=== PATIENT | male | born 1955 | race Caucasian/White ===

== ENCOUNTER → 2017-01-30 | Outpatient (CLI) | payer OTHER ==
[~2017-01-30] MED LIST: ADVIN50/60 INH; ASPI81TA28 PO; BACL1TAB PO; BSP/10 PO; BUPR150T7 PO; CAFF200T13 PO; CALC600T PO; CHOL2000 PO; DICL1TAB5 PO; FLNIN/ NAE; IPRA1AER2 INH; LEVO-14 PO; MAGN250T9 PO; MULT-506 PO; OMEG120013 PO; OMEP20CA9 PO; POTATAB PO; PRVC/20 PO; QUET1TAB30 PO; QUET1TAB32 PO; VITA400C15 PO
--- NOTE | 2017-01-30 16:12 | DIAGNOSTIC IMAGING REPORT ---
MRI OF THE CERVICAL SPINE WITHOUT CONTRAST CLINICAL HISTORY: Right hand weakness. Neck pain. Paresthesias. COMPARISON: MRI of the cervical spine September 25, 2014 and cervical spine radiograph March 24, 2016. TECHNIQUE: Utilizing a 1.5 Krysta magnet and dedicated coil, multiplanar, multiecho imaging of the cervical spine was performed without IV contrast. FINDINGS: There are postsurgical findings consistent with a C6 corpectomy and C5-C7 anterior fusion. Cervical cord signal and caliber are normal. There is no intracanalicular mass or fluid collection. There is no suspicious marrow replacement. Paravertebral soft tissues are unremarkable. A hemangioma within the C3 vertebral body is noted. C2-C3: The central canal and neural foramen are patent. C3-C4: The central canal and neural foramen are patent. C4-C5: There is disc bulge with a small central disc protrusion. There is minimal narrowing of the central canal. There is mild left and moderate right neural foraminal stenosis. This is predominantly due to facet arthrosis. C5-C6: Osteophyte formation results in mild narrowing of the central canal. There is moderate bilateral neural foraminal stenosis. C6-C7: Central canal is patent. There is severe narrowing of the right neural foramen due to uncovertebral hypertrophy and facet arthrosis. There is moderate narrowing of the left neural foramen. C7-T1: There is minimal disc bulge with a tiny central disc protrusion. The central canal and neural foramen are patent. IMPRESSION: 1. Status post C6 corpectomy and C5-C7 anterior fusion. 2. Mild central canal stenosis at C5-C6 due to osteophyte formation. Normal cervical cord signal and caliber. 3. Severe narrowing of the right C6-C7 neural foramen. Otherwise, moderate multilevel neural foraminal stenosis, as detailed above. Electronically signed by: Jonatan Cage M.D. 01/30/2017 4:11 PM Dictated Date/Time: 01/30/2017 4:01 PM
== END | disposition home or self-care (01) ==
LOC: C.MRIBC 15:11
PROVIDERS: ATTEND Physician Assistant
DX: M54.2 Cervicalgia (principal); R20.2 Paresthesia of skin; R29.898 Other symptoms and signs involving the musculoskeletal system; M99.51 Intervertebral disc stenosis of neural canal of cervical region; M43.22 Fusion of spine, cervical region

== ENCOUNTER → 2017-09-05 | Outpatient (CLI) | payer OTHER ==
--- NOTE | 2017-09-05 11:27 | DIAGNOSTIC IMAGING REPORT ---
Brain MRI WITHOUT CONTRAST HISTORY: R51 Headache, chronic dailyPt is allergic to contrast- MRI brain TECHNIQUE: Multiplanar multisequence MRI of the brain was performed without the use of contrast. COMPARISON STUDY: None. FINDINGS: There are no areas of restricted diffusion to suggest acute infarction. The midline structures are intact. The paranasal sinuses are clear. The mastoid air cells are clear. The ventricles and sulci are within normal limits for age. There is no mass, hematoma, midline shift. The major vascular flow-voids at the skull base are well maintained. IMPRESSION: No acute intracranial abnormality. Electronically signed by: Cody Wiggins M.D. 09/05/2017 11:26 AM Dictated Date/Time: 09/05/2017 11:20 AM
== END | disposition home or self-care (01) ==
LOC: C.MRI 10:41
PROVIDERS: ATTEND Physician Assistant
DX: R51 Headache (principal)

== ENCOUNTER → 2017-09-13 | Outpatient (CLI) | payer OTHER ==
[2017-09-13 15:35] LABS: BASO % 0.9 %; BASO ABS # 0.05 K/uL (0-0.2); EOS % 7.4 %; EOS ABS # 0.41 K/uL (0-0.5); HEMATOCRIT 39.5 % (42-52); HEMOGLOBIN 13.7 g/dL (14.0-18.0); IG# 0.01 K/uL (0.00-0.02); LYMPH % 37.5 %; LYMPH ABS # 2.08 K/uL (1.2-3.4); MEAN CORPUSCULAR HEMOGLOBIN 32.9 pg (25-34); MEAN CORPUSCULAR HGB CONC 34.7 g/dl (32-36); MEAN PLATELET VOLUME 9.9 fL (7.4-10.4); MONO % 11.7 %; MONO ABS # 0.65 K/uL (0.11-0.59); NEUT % 42.3 %; NEUT ABS # 2.35 K/uL (1.4-6.5); PLATELET COUNT 284 K/uL (130-400); RED CELL DISTRIBUTION WIDTH CV 12.7 % (11.5-14.5); RED CELL DISTRIBUTION WIDTH SD 43.9 fL (36.4-46.3); WHITE BLOOD COUNT 5.55 K/uL (4.8-10.8)
== END | disposition home or self-care (01) ==
LOC: C.LAB1850 14:34
PROVIDERS: ATTEND Physician Assistant
DX: R51 Headache (principal)

== ENCOUNTER 2018-02-28 01:33 | Observation (INO) | payer OTHER ==
[~2018-02-28] VITALS: Ht 185.4 cm; Wt 90.8 kg
--- NOTE | 2018-02-28 01:50 | EMERGENCY ROOM VISIT NOTE ---
History Report prepared by Deven: Serjio Ocasio Under the Supervision of: Dr. Stefani Lacy D.O. First contact with patient: 01:38 Chief Complaint: CHEST PAIN Stated Complaint: CHEST PAINS,SHORTNESS OF BREATH History of Present Illness The patient is a 62 year old male who presents to the Emergency Room with complaints of constant, worsening, sharp chest pain beginning today at 0015. The patient states that he developed chest pain tonight when he went into work. He notes that his pain is located in his left chest and radiates to his left shoulder. He reports that his pain does not radiate to his back, neck, jaw, and left arm. The patient states that his pain worsens with movement. He also complains of SOB, difficulty focusing, lightheadedness, and "dry mouth." He denies any dizziness, nausea, abdominal pain, numbness/tingling, and black/ bloody stool. He notes that he has a history of acid reflux and asthma, but he reports that his current symptoms do not feel similar. The patient states that he has not had similar symptoms before. He notes that he took an antacid prior to arrival with no relief of his symptoms. He reports that he has a history of anxiety but he states that his current symptoms do not feel like an anxiety attack. He denies any previous history of heart problems, recent travel, and change in medication. The patient states that he does not smoke cigarettes and drink alcohol. He notes that he does not have a family history of heart problems , but he reports that he has a family history of cancer. Source of History: patient Onset: 0015 today Quality: sharp Timing: constant, worsening Associated Symptoms: + SOB, No nausea, No abdominal pain, No numbness Note: The patient also complains of left shoulder pain, difficulty focusing, lightheadedness, and "dry mouth.". He denies any jaw pain, left arm pain, dizziness, tingling, and black/bloody stool. Review of Systems See HPI for pertinent positives & negatives. A total of 10 systems reviewed and were otherwise negative. Past Medical & Surgical Medical Problems: (1) Anxiety (2) Asthma (3) Cervical stenosis of spinal canal (4) CVA (cerebral infarction) (5) Diabetes (6) GERD (gastroesophageal reflux disease) (7) Other chest pain Surgical Problems: (1) H/O knee surgery (2) History of back surgery Family History Cancer Diabetes mellitus Hypertension Kidney disease Kidney stones Social History Smoking Status: Former Smoker Alcohol Use: none Marital Status: Housing Status: lives with family Occupation Status: disabled Current/Historical Medications Scheduled Ascorbic Acid (Vitamin C), 1,000 MG PO TID Aspirin (Aspirin Ec), 81 MG PO HS Bupropion Hcl (Wellbutrin Xl), 300 MG PO DAILY Buspirone HCl (Buspirone HCl), 10 MG PO BID Caffeine (Caffeine), 1 CAP PO QDL Calcium Carbonate (Calcium 600), 600 MG PO QPM Cholecalciferol (Vitamin D3), 2,000 INTER.UNIT PO DAILY Cyanocobalamin (Vitamin B-12), 100 MCG PO DAILY Fluticasone Prop/Salmeterol (Advair Diskus 500/50 60 Dose), 1 PUFF INH BID Fluticasone Propionate (Fluticasone Propionate), 2 SPRAYS JEANETTE DAILY Garlic (Garlic), 1,000 MG PO TID Ginkgo Biloba (Ginkgo), 1 TAB PO BID Magnesium (Magnesium), 250 MG PO DAILY Multivitamin (Multivitamin), 1 TAB PO DAILY Nutritional Supplements (Wainwright Oil), 1,200 MG PO TID Omeprazole (Prilosec), 20 MG PO BID Potassium Citrate (Alkalinizer (Urocit-K 5), 1 TAB PO DAILY Pravastatin Sod (Pravastatin Sodium), 20 MG PO HS Quetiapine Fumarate (Seroquel), 50 MG PO TID Quetiapine Fumarate (Seroquel), 25 MG PO TID Thiamine Hcl (Vitamin B-1), 100 MG PO DAILY Turmeric (Curcuma Longa) (Turmeric), 1 CAP PO TID Vitamin E (E-400), 400 UNIT PO DAILY Scheduled PRN Ipratropium-Albuterol (Combivent Respimat), 1 PUFF INH QID PRN for Asthma Symptoms Allergies Coded Allergies: Iodinated Diagnostic Agents (Verified Allergy, Severe, RESPIRATORY ARREST , 02/28/18) Iodine (Verified Allergy, Severe, IV-RESP ARREST, 02/28/18) pt. states if given IV has a respiratory arrest Cortisone (Verified Allergy, Unknown, CONTACT SITE SWELLING,RASH, 02/28/18) pt. states he has swelling or gets a rash Valproic Acid (Verified Allergy, Unknown, HALLUCINATIONS , 02/28/18) Fluoxetine (Verified Adverse Reaction, Mild, AGITATION, 02/28/18) pt states he becomes agitated behaviorally Paroxetine (Verified Adverse Reaction, Mild, AGITATION, 02/28/18) pt. states it causes behavoiral agitation Sertraline (Verified Adverse Reaction, Mild, AGITATION, 02/28/18) pt state it causes behavioral agitation Gabapentin (Verified Adverse Reaction, Unknown, suicidal, 02/28/18) Uncoded Allergies: MAYONNAISE (Adverse Reaction, Mild, Nausea, 09/30/15) Reported by PT Physical Exam Vital Signs Date Time Temp Pulse Resp B/P (MAP) Pulse Ox O2 Delivery O2 Flow Rate FiO2 02/28/18 06:24 72 18 124/72 97 Room Air 02/28/18 06:07 71 14 124/72 96 Room Air 02/28/18 05:11 67 02/28/18 05:06 72 16 116/72 97 Room Air 02/28/18 04:30 77 18 121/87 95 Room Air 02/28/18 02:44 91 13 132/63 90 Room Air 02/28/18 01:51 93 02/28/18 01:39 36.5 94 18 164/87 97 Room Air 02/28/18 01:39 96 Room Air Physical Exam GENERAL: alert, uncomfortable appearing, well nourished, in mild distress, non- toxic EYE EXAM: normal conjunctiva, PERRL and EOM's grossly intact OROPHARYNX: no exudate, no erythema, lips, buccal mucosa, and tongue normal and mucous membranes are moist NECK: supple, no nuchal rigidity, no adenopathy, non-tender LUNGS: Clear to auscultation. Normal chest wall mechanics HEART: no murmurs, S1 normal and S2 normal CHEST: No reproducible chest wall tenderness. ABDOMEN: abdomen soft, non-tender, normo-active bowel sounds, no masses, no rebound or guarding. BACK: Back is symmetrical on inspection and there is no deformity, no midline tenderness, no CVA tenderness. SKIN: no rashes and no bruising UPPER EXTREMITIES: upper extremities are grossly normal. LOWER EXTREMITIES: Trace bilateral lower extremity edema. NEURO EXAM: Normal sensorium, cranial nerves II-XII grossly intact, normal speech, no gross weakness of arms, no gross weakness of legs. Medical Decision & Procedures ER Provider Diagnostic Interpretation: Radiology results have been interpreted and reviewed by me. SINGLE VIEW CHEST X-RAY: Rotated. No cardiomegaly, effusions, focal consolidation, wide mediastinum, and acute pulmonary edema. Cervical spine hardware noted. Laboratory Results 02/28/18 01:44 Red Blood Count 4.16, Mean Corpuscular Volume 95.4, Mean Corpuscular Hemoglobin 32.0, Mean Corpuscular Hemoglobin Concent 33.5, Mean Platelet Volume 9.6, Neutrophils (%) (Auto) 48.8, Lymphocytes (%) (Auto) 31.3, Monocytes (%) (Auto) 12.9, Eosinophils (%) (Auto) 5.7, Basophils (%) (Auto) 1.1, Neutrophils # (Auto ) 3.23, Lymphocytes # (Auto) 2.07, Monocytes # (Auto) 0.85, Eosinophils # (Auto ) 0.38, Basophils # (Auto) 0.07 02/28/18 01:44 Test 02/28/18 01:44 02/28/18 01:53 02/28/18 05:13 White Blood Count 6.61 K/uL (4.8-10.8) Red Blood Count 4.16 M/uL (4.7-6.1) Hemoglobin 13.3 g/dL (14.0-18.0) Hematocrit 39.7 % (42-52) Mean Corpuscular Volume 95.4 fL (80-100) Mean Corpuscular Hemoglobin 32.0 pg (25-34) Mean Corpuscular Hemoglobin Concent 33.5 g/dl (32-36) Platelet Count 300 K/uL (130-400) Mean Platelet Volume 9.6 fL (7.4-10.4) Neutrophils (%) (Auto) 48.8 % Lymphocytes (%) (Auto) 31.3 % Monocytes (%) (Auto) 12.9 % Eosinophils (%) (Auto) 5.7 % Basophils (%) (Auto) 1.1 % Neutrophils # (Auto) 3.23 K/uL (1.4-6.5) Lymphocytes # (Auto) 2.07 K/uL (1.2-3.4) Monocytes # (Auto) 0.85 K/uL (0.11-0.59) Eosinophils # (Auto) 0.38 K/uL (0-0.5) Basophils # (Auto) 0.07 K/uL (0-0.2) RDW Standard Deviation 45.4 fL (36.4-46.3) RDW Coefficient of Variation 13.1 % (11.5-14.5) Immature Granulocyte % (Auto) 0.2 % Immature Granulocyte # (Auto) 0.01 K/uL (0.00-0.02) Prothrombin Time 10.7 SECONDS (9.0-12.0) Prothromb Time International Ratio 1.0 (0.9-1.1) Activated Partial Thromboplast Time 25.2 SECONDS (21.0-31.0) Partial Thromboplastin Ratio 1.0 D-Dimer 330 ug/L FEU (0-500) Anion Gap 6.0 mmol/L (3-11) Est Creatinine Clear Calc Drug Dose 79.2 ml/min Estimated GFR () 82.3 Estimated GFR (Non- 71.0 BUN/Creatinine Ratio 14.7 (10-20) Estimated Average Glucose 123 mg/dl Hemoglobin A1c 5.9 % (4.5-5.6) Calcium Level 8.6 mg/dl (8.5-10.1) Magnesium Level 2.0 mg/dl (1.8-2.4) Total Bilirubin 0.6 mg/dl (0.2-1) Aspartate Amino Transf (AST/SGOT) 24 U/L (15-37) Alanine Aminotransferase (ALT/SGPT) 36 U/L (12-78) Alkaline Phosphatase 79 U/L (45-117) Pro-B-Type Natriuretic Peptide < 5 pg/ml (0-900) Total Protein 7.3 gm/dl (6.4-8.2) Albumin 3.9 gm/dl (3.4-5.0) Globulin 3.4 gm/dl (2.5-4.0) Albumin/Globulin Ratio 1.1 (0.9-2) Lipase 102 U/L (73-393) Thyroid Stimulating Hormone (TSH) 1.920 uIu/ml (0.300-4.500) Bedside Troponin I < 0.030 ng/ml (0-0.045) Troponin I < 0.015 ng/ml (0-0.045) Laboratory results per my review. Medications Administered Medications (Trade) Dose Ordered Sig/Lis Route Start Time Stop Time Status Last Admin Dose Admin Nitroglycerin (Nitroglycerin 2% Oint) 1 inch NOW ONCE EXT 02/28/18 02:00 02/28/18 06:05 DC 02/28/18 01:59 1 INCH Famotidine (Pepcid 20mg Iv Push) 20 mg ONE STAT IV 02/28/18 01:51 02/28/18 01:53 DC 02/28/18 01:59 20 MG Fentanyl Citrate (Fentanyl Inj) 90 mcg NOW STAT IV 02/28/18 02:48 02/28/18 02:49 DC 02/28/18 02:55 90 MCG Sodium Chloride 500 ml @ 999 mls/hr Q31M STAT IV 02/28/18 02:49 02/28/18 03:19 DC 02/28/18 02:55 999 MLS/HR Fentanyl Citrate (Fentanyl Inj) 90 mcg NOW ONCE IV 02/28/18 03:45 02/28/18 03:46 DC 02/28/18 03:51 90 MCG Al Hydroxide/Mg Hydroxide (Maalox Susp) 30 ml STK-MED ONCE .ROUTE 02/28/18 03:46 02/28/18 03:47 DC 02/28/18 03:48 30 ML Lidocaine HCl (Viscous Lidocaine 2% Soln) 20 ml STK-MED ONCE .ROUTE 02/28/18 03:47 02/28/18 03:48 DC 02/28/18 03:49 20 ML Ketorolac Tromethamine (Toradol Inj) 30 mg NOW STAT IV 02/28/18 04:35 02/28/18 04:38 DC 02/28/18 04:45 30 MG Morphine Sulfate (MoRPHine SULFATE INJ) 4 mg NOW STAT IV 02/28/18 05:56 02/28/18 05:57 DC 02/28/18 06:07 4 MG Potassium Chloride (Klor-Con M10) 20 meq NOW STAT PO 02/28/18 06:04 02/28/18 06:10 DC 02/28/18 06:12 20 MEQ ECG Per My Interpretation Indication: chest pain Rate (beats per minute): 89 Rhythm: sinus rhythm Findings: no acute ischemic change, no ectopy, other (Normal axis, normal intervals) Change: Repeat EKG: Sinus rhythm, 83, normal axis, normal intervals, no ectopy, no acute ischemic changes. ED Course 0140: The patient was evaluated in room A3. A complete history and physical exam was performed. 0151: Famotidine 20mg IV 0200: Nitroglycerin 1inch EXT 0247: I reevaluated and updated the patient. He states that he is still having pain, but he notes that his pain is not as bad as it was previously. 0248: Fentanyl Citrate 90mcg IV 0249: Sodium Chloride 500 ml @ 999 mls/hr IV 0336: GI Cocktail 24ml PO 0345: Fentanyl Inj 90mcg IV 0346: Maalox Susp 30ml PO 0347: Lidocaine HCl 20ml PO 0424: I reevaluated and updated the patient. 0435: Toradol Inj 30mg IV 0552: I rechecked the patient. He is still having pain that has not improved with medication. 0556: Morphine Sulfate 4mg IV 0558: Upon reevaluation, the patient is stable. I discussed the findings and the treatment plan with the patient. He expresses agreement and understanding. I spoke with Dr. Stuart of the [facility]. The patient will be evaluated for further management. Medical Decision Differential diagnosis: Etiologies such as cardiac ischemia, aortic dissection, pulmonary embolism, pneumonia, pneumothorax, musculoskeletal, infections, pericarditis, myocarditis , esophageal rupture, gastrointestinal, as well as others were entertained. HEART score 4 Patient with concerning presentation initially and good story concerning for cardiac etiology of his chest pain. Patient given GI medications as a precaution given his history of reflux. Patient did state that symptoms this morning do not feel like his typical reflux do not feel like anxiety which she is also previously experienced. Patient's initial blood work was negative, chest x-ray reassuring. Repeat troponin was unchanged. However, patient had persistence of his pain despite multiple medications which was concerning. Case discussed with hospitalist for additional evaluation and treatment. Patient aware of all results and my concerns. We did discuss differential diagnosis. Patient verbalized understanding and was agreeable with plan. Medication Reconcilliation Current Medication List: was personally reviewed by me Blood Pressure Screening Patient's blood pressure: Normal blood pressure Blood pressure disposition: Did not require urgent referral Consults Time Called: 0555 [facility] Call: 0513 I reviewed the patient's case with Dr. Stuart. He will evaluate the patient for further management. Impression Primary Impression: Left sided chest pain Scribe Attestation The scribe's documentation has been prepared under my direction and personally reviewed by me in its entirety. I confirm that the note above accurately reflects all work, treatment, procedures, and medical decision making performed by me. Departure Information Dispostion Being Evaluated By Hospitalist Referrals Raul Rao M.D. (PCP) Patient Instructions [facility]
[2018-02-28] MEDS ORDERED: FAMOTIDINE 20MG/5ML IV PUSH IV STA (01:51)
[2018-02-28] MEDS ORDERED: NITROGLYCERIN 2% OINTMENT 30GM TUBE EXT ONE (02:00)
[2018-02-28 02:06] LABS: BASO % 1.1 %; BASO ABS # 0.07 K/uL (0-0.2); EOS % 5.7 %; EOS ABS # 0.38 K/uL (0-0.5); HEMATOCRIT 39.7 % (42-52); HEMOGLOBIN 13.3 g/dL (14.0-18.0); IG# 0.01 K/uL (0.00-0.02); LYMPH % 31.3 %; LYMPH ABS # 2.07 K/uL (1.2-3.4); MEAN CELL VOLUME 95.4 fL (80-100); MEAN CORPUSCULAR HGB CONC 33.5 g/dl (32-36); MEAN PLATELET VOLUME 9.6 fL (7.4-10.4); MONO % 12.9 %; MONO ABS # 0.85 K/uL (0.11-0.59); NEUT % 48.8 %; NEUT ABS # 3.23 K/uL (1.4-6.5); PLATELET COUNT 300 K/uL (130-400); RED CELL DISTRIBUTION WIDTH CV 13.1 % (11.5-14.5); RED CELL DISTRIBUTION WIDTH SD 45.4 fL (36.4-46.3); WHITE BLOOD COUNT 6.61 K/uL (4.8-10.8)
[2018-02-28 02:48] LABS: ALBUMIN 3.9 gm/dl (3.4-5.0); ALKALINE PHOSPHATASE 79 U/L (45-117); ALT/SGPT 36 U/L (12-78); AST/SGOT 24 U/L (15-37); BLOOD UREA NITROGEN 16 mg/dl (7-18); CALCIUM 8.6 mg/dl (8.5-10.1); CARBON DIOXIDE 26 mmol/L (21-32); CREATININE 1.12 mg/dl (0.60-1.40); GLUCOSE 157 mg/dl (70-99); LIPASE 102 U/L (73-393); POTASSIUM 3.4 mmol/L (3.5-5.1); SODIUM 140 mmol/L (136-145); TOTAL PROTEIN 7.3 gm/dl (6.4-8.2)
[2018-02-28] MEDS ORDERED: FENTANYL CITRATE INJ 50 MCG/1 ML 2 ML VIAL IV STA (02:48)
[2018-02-28] MEDS ORDERED: SODIUM CHLORIDE 0.9% 500ML 500 ML IV STA (02:49)
[2018-02-28] MEDS ORDERED: VITACAP37 PO (03:34)
[2018-02-28] MEDS ORDERED: NUTR1000 PO (03:36)
[2018-02-28] MEDS ORDERED: POTATAB PO (03:36)
[2018-02-28] MEDS ORDERED: GI COCKTAIL PO STA (03:36)
[2018-02-28] MEDS ORDERED: BUPRTAB51 PO (03:38)
[2018-02-28] MEDS ORDERED: GARL10007 PO (03:39)
[2018-02-28] MEDS ORDERED: TURM1CAP4 PO (03:40)
[2018-02-28] MEDS ORDERED: GINK60TA2 PO (03:40)
[2018-02-28] MEDS ORDERED: THIA100T10 PO (03:41)
[2018-02-28] MEDS ORDERED: ASCO10003 PO (03:41)
[2018-02-28] MEDS ORDERED: CYAN100T PO (03:41)
[2018-02-28] MEDS ORDERED: FENTANYL CITRATE INJ 50 MCG/1 ML 2 ML VIAL IV ONE (03:45)
[2018-02-28] MEDS ORDERED: ALUMINUM/MAGNESIUM SUSP 30 ML UDC ONE (03:46)
[2018-02-28] MEDS ORDERED: LIDOCAINE HCL 2% VISC SOLN 20 ML UDC ONE (03:47)
[2018-02-28] MEDS ORDERED: KETOROLAC TROMETHAMINE 30 MG/ML VIAL IV STA (04:35)
[2018-02-28] MEDS ORDERED: MoRPHine SULFATE 4 MG/ML 1 ML CARP\\VIAL IV STA (05:56)
[2018-02-28] MEDS ORDERED: POTASSIUM CHLORIDE 10 MEQ TABCR PO STA (06:04)
[2018-02-28 06:25] LABS: PTT PATIENT 25.2 SECONDS (21.0-31.0)
[2018-02-28] MEDS ORDERED: IV FLUIDS COMPLETED PRN (06:30)
[2018-02-28 06:40] LABS: HEMOGLOBIN A1C 5.9 % (4.5-5.6)
[2018-02-28] MEDS ORDERED: NITROGLYCERIN 0.4 MG SL PER TAB CHARGE SL PRN (06:45)
[2018-02-28] MEDS ORDERED: TRAMADOL HCL 50 MG TAB PO PRN (06:45)
[2018-02-28] MEDS ORDERED: ACETAMINOPHEN 325 MG TAB PO PRN (06:45)
[2018-02-28] MEDS ORDERED: PROCHLORPERAZINE INJ 5 MG in SYRINGE 4 ML IV PRN (06:45)
[2018-02-28] MEDS ORDERED: MoRPHine SULFATE 2 MG/ML CARP IV PRN (06:45)
[2018-02-28] MEDS ORDERED: LACTATED RINGER'S 1000ML 1,000 ML IV SCH (06:45)
[2018-02-28] MEDS ORDERED: LORAZEPAM 2 MG/ML 1 ML VIAL IV PRN (06:45)
[2018-02-28 07:14] VITALS: BP 149/83; PULSE 68; TEMP 37; O2SAT 95; Ht 185.4 cm; Wt 90.8 kg
--- NOTE | 2018-02-28 07:31 | DIAGNOSTIC IMAGING REPORT ---
SINGLE VIEW CHEST CLINICAL HISTORY: Atypical chest pain. FINDINGS: An AP, portable, upright chest radiograph is compared to study dated 09/14/2015. Correlation is made with chest CT dated 07/28/2014. The examination is degraded by portable technique and patient rotation. The cardiomediastinal silhouette is unremarkable. There are low lung volumes with bibasilar atelectasis. No airspace consolidation or large pleural effusion is identified. No pneumothorax is seen. The skeletal structures are osteopenic. The bony thorax is grossly intact. Fusion hardware is noted in the lower cervical spine. IMPRESSION: Low lung volumes with no acute cardiopulmonary abnormality. Electronically signed by: Ric Randle M.D. 02/28/2018 7:29 AM Dictated Date/Time: 02/28/2018 7:28 AM
[2018-02-28] MEDS ORDERED: ASPIRIN 81 MG ECTAB PO ONE (07:32)
[2018-02-28] MEDS: QUETIAPINE FUMARATE 25 MG TAB PO SCH ×2 (08:03→14:02)
--- NOTE | 2018-02-28 08:23 | HISTORY & PHYSICAL EXAMINATION ---
DATE OF ADMISSION: 02/28/2018 PRIMARY CARE PHYSICIAN: Dr. Rao. CHIEF COMPLAINT: Chest pain. HISTORY OF PRESENT ILLNESS: History obtained from patient and records. Medical history is significant for hyperlipidemia, chronic neck pain, chronic anemia (baseline hemoglobin 13), asthma, mood/anxiety disorder, sleep apnea, past alcohol abuse, ongoing tobacco abuse. chronic headache as per records. Recent confinement under Orthopedics service last September 2015 for neck surgery. 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 No trauma. No unusual cough symptoms. Different from reflux. No previous episodes. No recent tick bites although insect bite noted on the left ankle about a week ago. Some relief with Nitro paste given in the ER. MEDICAL HISTORY: As above. OPERATIONS: He has had neck surgery, carpal tunnel surgery. Finger tendon surgery, back surgery, toenail removal. HOME MEDICATIONS: Include magnesium, multivitamins, Prilosec, Fioricet, pravastatin, Seroquel, turmeric, thiamine, vitamin E, vitamin C, aspirin, Wellbutrin, buspirone, calcium. ALLERGIES: CORTISONE, IODINE, VALPROIC ACID, , SERTRALINE, PAROXETINE, GABAPENTIN, DYE. FAMILY HISTORY: Colon cancer. PERSONAL AND SOCIAL HISTORY: occasional cigars, past alcohol abuse. 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 REVIEW OF SYSTEMS: As per HPI, all 10 systems reviewed. All other ROS negative. PHYSICAL EXAMINATION: VITAL SIGNS: Blood pressure was noted to be 160/80 later 110/70, pulse rate 80 , RR 20, temperature 37, sats 97 on room air. GENERAL: Noted to be anxious, no respiratory distress. SKIN: Pallor, warm. HEENT: Alopecia. Bespectacled. Pale palpebral conjunctivae. No ptosis. Dry mucosa. NECK: Chronic neck ROM limitation, nontender. CHEST: Decreased effort. No wheeze. Tenderness on the left chest wall. HEART: Regular rate and rhythm, no murmur. ABDOMEN: Soft, nontender. EXTREMITIES: papule L medial ankle, no edema, nontender. No other deformities. NEUROLOGIC: Coherent. No gross focality. LABORATORY DATA: Hemoglobin was noted to be 13.3, hematocrit 39.7, white cell count 9, platelets 200. Sodium 140, K 3.3., CO2 26, glucose 157. Troponin 0.03. Chest x-ray as per my interpretation atelectasis. EKG as per my interpretation NSR, some T-wave flattening in the lateral leads. ASSESSMENT: 1. Pleuritic left-sided chest pain likely musculoskeletal with reproducibility ro pericarditis ro acute coronary syndrome with Nitro relief. 2. hyperlipidemia on statin therapy, 3. hypokalemia 4. Mood/anxiety DSO on meds 5. past alcohol abuse 6. Chronic anemia, hemoglobin at baseline 7. ongoing tobacco abuse 8. hyperglycemia, rule out DM PLAN: Observation PCU. Check ESR and Lyme screen Follow up troponin level 2D echo. Cardio consult RE chest pain. Replace potassium. Check hemoglobin A1c. The patient counseled to stop smoking. DVT prophylaxis, Lovenox subQ. Full code. MTDD
[2018-02-28] MEDS ORDERED: PANTOprazole SOD 40 MG TAB PO SCH (09:00)
[2018-02-28] MEDS ORDERED: FLUTICASONE PROPIONATE NA SPR 16 GM BTL NAE SCH (09:00)
[2018-02-28] MEDS ORDERED: FLUTICASONE/SALMETEROL (ADVAIR) 500/50 INH 14 PUFF INH SCH (09:00)
[2018-02-28] MEDS ORDERED: BuPROPion XL 300 MG TABCR PO SCH (09:00)
[2018-02-28] MEDS ORDERED: CYANOCOBALAMIN 100 MCG TAB (VIT B-12) PO SCH (09:00)
[2018-02-28] MEDS ORDERED: MULTIVITAMIN TAB PO SCH (09:00)
[2018-02-28] MEDS ORDERED: ENOXAPARIN 40 MG/0.4 ML SYR SC SCH (09:00)
[2018-02-28] MEDS ORDERED: THIAMINE HCL 100 MG TAB PO SCH (09:00)
[2018-02-28 09:57] LABS: CHOLESTEROL 163 mg/dl (0-200); LDL CHOLESTEROL CALCULATED 108 mg/dl
--- NOTE | 2018-02-28 10:48 | Cardiology Consultation ---
Cardiology Consultation Date of Consultation: Feb 28, 2018 Requesting Physician: Dr. Stuart Attending Feed Project Engineer: Dr. Pizarro (Marguerite Negrete PA-C) History of Present Illness Patient is a 62 year old male with history of dyslipidemia, PTSD, anxiety/ depression, prior alcohol and tobacco abuse, history of asthma/possible COPD, and chronic back and neck pain. Patient denies prior history of cardiovascular disease including CAD, ME, arrhythmia or history of murmur. He denies prior cardiac testing or invasive procedures. 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 He felt dizzy/lightheaded with the symptoms and reported loss of "coordination". No falls. no syncope. He also reported increased SOB with his symptoms. Upon arrival in ER. EKG demonstrated NSR without significant ischemic changes. Cardiac enzymes negative. He was treated with nitro without significant relief. He reports symptoms are worsened with deep breaths. No fever or chills. he reports insect bite on left ankle last week. mild erythema. No known tick bites. lyme pending. ESR normal. At time of consult patient continues to report 6 out of 10 left-sided chest pain described as a constant ache worse with deep breaths and movement of his arms. No shortness of breath. No weakness. Dizziness improved. No headaches or vision changes. No cough. No fever chills. He reports his symptoms have not significantly improved since admission. Cardiac enzymes remain unremarkable 4. EKG is unchanged this morning. (Marguerite Negrete PA-C) Past Medical/Surgical History Problem List: Medical Problems: (1) Anxiety (2) Asthma (3) Cervical stenosis of spinal canal (4) CVA (cerebral infarction) (5) Diabetes (6) GERD (gastroesophageal reflux disease) (7) Other chest pain Surgical Problems: (1) H/O knee surgery (2) History of back surgery (Marguerite Negrete PA-C) Family History Cancer Diabetes mellitus Hypertension Kidney disease Kidney stones (Marguerite Negrete PA-C) Cancer Diabetes mellitus Hypertension Kidney disease Kidney stones (Bar Pizarro M.D.) Social History Smoking Status: Current Some Day Smoker Marital Status: Occupation: disabled (Marguerite Negrete PA-C) Review Of Systems See above for pertinent positives & negatives. A total of 10 systems reviewed and were otherwise negative. (Marguerite Negrete PA-C) Allergies Coded Allergies: Iodinated Diagnostic Agents (Verified Allergy, Severe, RESPIRATORY ARREST , 02/28/18) Iodine (Verified Allergy, Severe, IV-RESP ARREST, 02/28/18) pt. states if given IV has a respiratory arrest Cortisone (Verified Allergy, Unknown, CONTACT SITE SWELLING,RASH, 02/28/18) pt. states he has swelling or gets a rash Valproic Acid (Verified Allergy, Unknown, HALLUCINATIONS , 02/28/18) Fluoxetine (Verified Adverse Reaction, Mild, AGITATION, 02/28/18) pt states he becomes agitated behaviorally Paroxetine (Verified Adverse Reaction, Mild, AGITATION, 02/28/18) pt. states it causes behavoiral agitation Sertraline (Verified Adverse Reaction, Mild, AGITATION, 02/28/18) pt state it causes behavioral agitation Gabapentin (Verified Adverse Reaction, Unknown, suicidal, 02/28/18) Uncoded Allergies: MAYONNAISE (Adverse Reaction, Mild, Nausea, 09/30/15) Reported by PT Medications Reported Home Medications Medications Dose Route/Sig Max Daily Dose Days Date Category Vitamin B-12 (Cyanocobalamin) 100 Mcg Tab 100 Mcg PO DAILY 02/28/18 Reported Vitamin B-1 (Thiamine HCl) 100 Mg Tab 100 Mg PO DAILY 02/28/18 Reported Vitamin C (Ascorbic Acid) 1,000 Mg Tab 1,000 Mg PO TID 02/28/18 Reported Turmeric (Turmeric (Curcuma Longa)) 500 Mg Cap 1 Cap PO TID 02/28/18 Reported Ginkgo (Ginkgo Biloba) 60 Mg Tab 1 Tab PO BID 02/28/18 Reported Garlic 1,000 Mg Cap 1,000 Mg PO TID 02/28/18 Reported Wellbutrin Xl (Bupropion Hcl) 300 Mg Tab 300 Mg PO DAILY 02/28/18 Reported [place] Oil (Nutritional Supplements) 1 Cap Cap 1,200 Mg PO TID 02/28/18 Reported Urocit-K 5 (Potassium Citrate (Alkalinizer) 540 Mg Tab 1 Tab PO DAILY 02/28/18 Reported E-400 (Vitamin E) 400 Unit Cap 400 Unit PO DAILY 02/28/18 Reported Seroquel (Quetiapine Fumarate) 25 Mg Tab 25 Mg PO TID 03/24/16 Reported Fluticasone Propionate 120 Sprays/6000 Mcg Inha 2 Sprays JEANETTE DAILY 03/24/16 Reported Magnesium 250 Mg Tab 250 Mg PO DAILY 03/24/16 Reported Buspirone HCl 10 Mg Tab 10 Mg PO BID 03/24/16 Reported Seroquel (Quetiapine Fumarate) 50 Mg Tab 50 Mg PO TID 03/24/16 Reported Caffeine 200 Mg Tab 1 Cap PO QDL 09/14/15 Reported Multivitamin (Multivitamins) Tab 1 Tab PO DAILY 09/14/15 Reported Advair Diskus 500/50 60 Dose (Fluticasone Prop/Salmeterol) 1 Ea Aerp 1 Puff INH BID 09/14/15 Reported Aspirin Ec (Aspirin) 81 Mg Tab 81 Mg PO HS 07/28/14 Reported Combivent Respimat (Ipratropium-Albuterol) 1 Aer Aer 1 Puff INH QID PRN 07/28/14 Reported Pravastatin Sodium (Pravastatin Sod) 20 Mg Tab 20 Mg PO HS 07/28/14 Reported Prilosec (Omeprazole) 20 Mg Cap 20 Mg PO BID 07/28/14 Reported Calcium 600 (Calcium Carbonate) 600 Mg Tab 600 Mg PO QPM 02/16/14 Reported Vitamin D3 (Cholecalciferol) 2,000 Unit Cap 2,000 Inter.unit PO DAILY 02/16/14 Reported (Marguerite Negrete, CINTHIA) Physical Exam Vital Signs (Last 8hrs): Last 8 Hrs Date Time Temp Pulse Resp B/P (MAP) Pulse Ox O2 Delivery O2 Flow Rate FiO2 02/28/18 07:14 37.0 68 18 149/83 95 Room Air 02/28/18 06:52 70 20 115/76 96 02/28/18 06:24 72 18 124/72 97 Room Air 02/28/18 06:07 71 14 124/72 96 Room Air 02/28/18 05:11 67 02/28/18 05:06 72 16 116/72 97 Room Air 02/28/18 04:30 77 18 121/87 95 Room Air 02/28/18 02:44 91 13 132/63 90 Room Air 02/28/18 01:51 93 02/28/18 01:39 36.5 94 18 164/87 97 Room Air 02/28/18 01:39 96 Room Air General Appearance: Alert and Oriented x3. NAD. Head: Normocephalic Atraumatic. Eyes: PERRLA, EOMI, conjunctiva and sclera clear Neck: Supple. No carotid bruits noted. No JVD. No HJD. Respiratory: Breath sounds clear to auscultation bilaterally. No w/r/r. Cardiovascular: Reg rate and rhythm. S1 and S2 noted. No murmurs, rubs, gallops. PMI non displace. Abdomen: Normal bowel sounds, soft nontender. no abdominal bruits. Extremities: No edema, no clubbing or cyanosis. distal pulses 2/4 bilaterally. Neuro: No focal deficits. Psychiatric: Normal affect. (Marguerite Negrete, CINTHIA) Data Last 24 Hours Test 02/28/18 01:44 02/28/18 01:53 02/28/18 05:13 02/28/18 09:10 White Blood Count 6.61 K/uL Red Blood Count 4.16 M/uL Hemoglobin 13.3 g/dL Hematocrit 39.7 % Mean Corpuscular Volume 95.4 fL Mean Corpuscular Hemoglobin 32.0 pg Mean Corpuscular Hemoglobin Concent 33.5 g/dl Platelet Count 300 K/uL Mean Platelet Volume 9.6 fL Neutrophils (%) (Auto) 48.8 % Lymphocytes (%) (Auto) 31.3 % Monocytes (%) (Auto) 12.9 % Eosinophils (%) (Auto) 5.7 % Basophils (%) (Auto) 1.1 % Neutrophils # (Auto) 3.23 K/uL Lymphocytes # (Auto) 2.07 K/uL Monocytes # (Auto) 0.85 K/uL Eosinophils # (Auto) 0.38 K/uL Basophils # (Auto) 0.07 K/uL RDW Standard Deviation 45.4 fL RDW Coefficient of Variation 13.1 % Immature Granulocyte % (Auto) 0.2 % Immature Granulocyte # (Auto) 0.01 K/uL Prothrombin Time 10.7 SECONDS Prothromb Time International Ratio 1.0 Activated Partial Thromboplast Time 25.2 SECONDS Partial Thromboplastin Ratio 1.0 D-Dimer 330 ug/L FEU Sodium Level 140 mmol/L Potassium Level 3.4 mmol/L Chloride Level 108 mmol/L Carbon Dioxide Level 26 mmol/L Anion Gap 6.0 mmol/L Blood Urea Nitrogen 16 mg/dl Creatinine 1.12 mg/dl Est Creatinine Clear Calc Drug Dose 79.2 ml/min Estimated GFR () 82.3 Estimated GFR (Non- 71.0 BUN/Creatinine Ratio 14.7 Random Glucose 157 mg/dl Estimated Average Glucose 123 mg/dl Hemoglobin A1c 5.9 % Calcium Level 8.6 mg/dl Magnesium Level 2.0 mg/dl Total Bilirubin 0.6 mg/dl Aspartate Amino Transf (AST/SGOT) 24 U/L Alanine Aminotransferase (ALT/SGPT) 36 U/L Alkaline Phosphatase 79 U/L Troponin I < 0.015 ng/ml < 0.015 ng/ml Pro-B-Type Natriuretic Peptide < 5 pg/ml Total Protein 7.3 gm/dl Albumin 3.9 gm/dl Globulin 3.4 gm/dl Albumin/Globulin Ratio 1.1 Lipase 102 U/L Thyroid Stimulating Hormone (TSH) 1.920 uIu/ml Bedside Troponin I < 0.030 ng/ml Imaging: Chest xray on admission: low long volumes, no acute process EKG: on admission - Normal sinus rhythm Nonspecific ST and T wave abnormality, compared with outpatient EKG in 2016, no signfiacint change Repeat EKG this AM: Normal sinus rhythm with sinus arrhythmia Nonspecific T wave abnormality no change from previous Telemetry reviewed: NSR in the 70's, rare PVC. No concerning arrhythmias. (Marguerite Negrete PA-C) Assessment & Plan 1. Atypical chest pain, negative cardiac enzymes x4, non ischemic EKG x2 despite ongoing symptoms. -proceed with dobutamine stress echo to evaluate structural heart disease and r/o ischemia -given chronic back/neck pain, patient is unable to walk on a treadmill. -lyme test pending with recent "insect bite" -pleurisy/pericarditis unlikely - normal ESR. -consider musculoskeletal etiology if stress test is normal given history of cervical disc disease 2. dyslipidemia - continue statin Further recommendation spending review of echo/stress test results. Case to be discussed with Dr. Pizarro (Marguerite eNgrete PA-C) Patient was seen and personally examined. Assessment plan as well outlined by Marguerite Negrete. 62-year-old male with symptoms atypical for angina with negative cardiac enzymes and EKGs normal to date. Patient was referred and underwent dobutamine stress echocardiography under my personal supervision patient achieving greater than 85% age-predicted maximum heart rate with appropriate blood pressure response. There is no evidence of myocardial ischemia by EKG or echocardiographic criteria with normal resting LV systolic function and no wall motion abnormalities. Impression: Noncardiac pain (Bar Pizarro M.D.)
[2018-02-28] MEDS ORDERED: DOBUTamine HCL 12.5 MG/ML 20 ML VIAL ONE (11:25)
[2018-02-28] MEDS ORDERED: ATROPINE SULFATE 0.1 MG/ML 10 ML SYR ONE (11:25)
[2018-02-28] MEDS ORDERED: METOPROLOL TARTRATE 1 MG/ML VIAL ONE ×2 (11:25→12:13)
[2018-02-28 12:30] VITALS: BP 94/56; PULSE 68; TEMP 36.6; O2SAT 95
--- NOTE | 2018-02-28 14:13 | DOBUTAMINE ECHO ---
*NOTICE TO RECEIVING LIBERTARIAN AGENCY This information is strictly Confidential and protected under [place] law. [place] law prohibits you from making any further disclosure of this information unless further disclosure is expressly permitted by the written consent of the person to whom it pertains or is authorized by law. A general authorization for the release of medical or other information is not sufficient for this purpose. Hospital accepts no responsibility if the information is made available to any other person, INCLUDING THE PATIENT. Interpretation Summary * Name: KATIE HALEY Study Date: 02/28/2018 10:29 AM BP: 119/68 mmHg * Patient Location: C.2T\S\S241\S\2 HR: 65 * : 1955 (M/d/yyyy) Gender: Male Height: 73 in * Age: 62 yrs Ethnicity: CA Weight: 200 lb * Ordering Physician: Marguerite Negrete * Referring Physician: Self, Referred * Performed By: Radha Gonzalez RDCS * * Reason For Study: Chest pain * BSA: 2.2 m2 * STRESS STUDY: Normal pharmacologic stress echocardiogram. No echocardiographic or ECG evidence of myocardial ischemia having achieved heart rate adequate for diagnostic purposes. * -- Conclusions -- * Left ventricular systolic function is normal. * Ejection Fraction = 55-60%. * The left ventricular ejection fraction increases normally with stress. The left ventricular end-systolic cavity size reduces post-stress (normal response). The left ventricular wall motion with stress is normal. * There is no significant valvular disease Procedure Details * DOBUTAMINE ECHO, CPT#[id number] * ECHO DOPPLER, CPT #[id number] * ECHO COLOR FLOW, CPT #[id number] Left Ventricle * The left ventricle is normal in size. * There is normal left ventricular wall thickness. * Ejection Fraction = 55-60%. * Left ventricular systolic function is normal. * Resting wall motion: Normal. Stress wall motion: Appropriate increase in Left ventricular systolic function and decrease in cavity size. No stress induced segmental wall motion abnormalities. * The left ventricular wall motion is normal at rest. * The left ventricular ejection fraction increases normally with stress. The left ventricular end-systolic cavity size reduces post-stress (normal response). The left ventricular wall motion with stress is normal. Right Ventricle * The right ventricle is normal in size and function. Atria * The left atrial size is normal. * Right atrial size is normal. * No ASD detected; PFO is not assessed. Mitral Valve * The mitral valve anatomy is normal. * There is no mitral valve stenosis. * Significant mitral regurgitation is absent. Tricuspid Valve * The tricuspid valve anatomy is normal. * There is no tricuspid stenosis. * There is mild tricuspid regurgitation. Aortic Valve * The aortic valve is trileaflet. * Aortic stenosis is absent. * There is no significant aortic regurgitation. Pulmonic Valve * The pulmonary valve is not well seen, but the Doppler examination is normal without significant regurgitation or stenosis. Great Vessels * The aortic root and proximal ascending aorta are normal sized. Pericardium * There is no pericardial effusion. Stress Parameters * Normal baseline electrocardiogram. * Stress ECG: No ST changes. No arrhythmias. * The stress portion of this study was personally supervised by the undersigned interpreting physician. * Rest heart rate was '65' BPM. * Rest blood pressure was '119/68' * Maximum heart rate achieved was 139 bpm. * Maximum heart rate was 86 % of maximum age-predicted heart rate. * Maximum blood pressure was '204/106' * Maximum Dobutamine infusion rate was '50' mcg/kg/min. * A total of 0.75 mg of intravenous Atropine was used to supplement Dobutamine for heart rate response. * Dobutamine infusion was terminated due to achieving target heart rate * A total of 7.5 mg of IV Metoprolol was administered to reverse Dobutamine-induced tachycardia. * The patient did not exhibit any symptoms during drug infusion. MMode 2D Measurements and Calculations IVSd 0.93 cm LVIDd 4.3 cm LVIDs 2.7 cm LVPWd 0.85 cm IVS/LVPW 1.1 FS 38.6 % EDV(Teich) 84.5 ml ESV(Teich) 26.1 ml EF(Teich) 69.1 % EDV(cubed) 81.3 ml ESV(cubed) 18.9 ml EF(cubed) 76.8 % LV mass(C)d 122.6 grams LV mass(C)dI 57.0 grams/m\S\2 SV(Teich) 58.5 ml SI(Teich) 27.2 ml/m\S\2 SV(cubed) 62.4 ml SI(cubed) 29.0 ml/m\S\2 Ao root diam 3.8 cm Ao root area 11.1 cm\S\2 ACS 2.0 cm LA dimension 3.2 cm asc Aorta Diam 3.6 cm LA/Ao 0.85 LVOT diam 1.9 cm LVOT area 2.9 cm\S\2 LVAd ap4 29.8 cm\S\2 LVLd ap4 8.6 cm EDV(MOD-sp4) 84.8 ml EDV(sp4-el) 87.6 ml LVAs ap4 16.9 cm\S\2 LVLs ap4 7.5 cm ESV(MOD-sp4) 33.5 ml ESV(sp4-el) 32.5 ml EF(MOD-sp4) 60.5 % EF(sp4-el) 62.9 % LVAd ap2 29.8 cm\S\2 LVLd ap2 8.2 cm EDV(MOD-sp2) 92.1 ml EDV(sp2-el) 91.9 ml LVAs ap2 17.4 cm\S\2 LVLs ap2 6.6 cm ESV(MOD-sp2) 39.8 ml ESV(sp2-el) 38.8 ml EF(MOD-sp2) 56.8 % EF(sp2-el) 57.9 % LVLd %diff -5.46 % EDV(MOD-bp) 91.0 ml LVLs %diff -12.73 % ESV(MOD-bp) 38.6 ml EF(MOD-bp) 57.6 % SV(MOD-sp4) 51.3 ml SI(MOD-sp4) 23.8 ml/m\S\2 SV(MOD-sp2) 52.3 ml SI(MOD-sp2) 24.3 ml/m\S\2 SV(MOD-bp) 52.4 ml SI(MOD-bp) 24.4 ml/m\S\2 SV(sp4-el) 55.1 ml SI(sp4-el) 25.6 ml/m\S\2 SV(sp2-el) 53.2 ml SI(sp2-el) 24.7 ml/m\S\2 Doppler Measurements and Calculations MV E max rodrigo 96.0 cm/sec MV A max rodrigo 44.6 cm/sec MV E/A 2.2 MV dec time 0.17 sec Ao V2 max 126.0 cm/sec Ao max PG 6.3 mmHg Ao max PG (full) 1.6 mmHg UMAIR(V,A) 2.6 cm\S\2 UMAIR(V,D) 2.6 cm\S\2 LV V1 max PG 4.8 mmHg LV V1 max 109.1 cm/sec PA V2 max 123.5 cm/sec PA max PG 6.1 mmHg PA acc slope 559.4 cm/sec\S\2 PA acc time 0.12 sec PI max rodrigo 90.9 cm/sec PI max PG 3.3 mmHg PI dec slope 102.5 cm/sec\S\2 PI P1/2t 259.9 msec TR max rodrigo 198.7 cm/sec PA pr(Accel) 26.7 mmHg
--- NOTE | 2018-02-28 14:34 | Progress Note ---
Medicine Progress Note Date & Time of Visit: Feb 28, 2018 at 14:34 . Subjective Serial troponins OK. Dobutamine stress test went well. Still having left anterior chest wall pain, worse with movement or applied pressure. . Objective Last 8 Hrs Date Time Temp Pulse Resp B/P (MAP) Pulse Ox O2 Delivery O2 Flow Rate FiO2 02/28/18 12:30 36.6 68 16 94/56 (69) 95 Room Air 02/28/18 12:00 Room Air 02/28/18 07:14 37.0 68 18 149/83 95 Room Air 02/28/18 06:52 70 20 115/76 96 Physical Exam: General- lying in bed; no distress Lungs- clear to auscultation; no respiratory distress Cardiovascular- RRR; no gallop appreciated; no JVD; no pretibial edema Thorax- left anterior chest wall tenderness Abdomen- + bowel sounds, soft, nontender Extremities- no cyanosis; no calf tenderness Neuro- alert, oriented Skin- warm & dry . Laboratory Results: Last 24 Hours Test 02/28/18 01:44 02/28/18 01:53 02/28/18 05:13 02/28/18 09:10 White Blood Count 6.61 K/uL Red Blood Count 4.16 M/uL Hemoglobin 13.3 g/dL Hematocrit 39.7 % Mean Corpuscular Volume 95.4 fL Mean Corpuscular Hemoglobin 32.0 pg Mean Corpuscular Hemoglobin Concent 33.5 g/dl Platelet Count 300 K/uL Mean Platelet Volume 9.6 fL Neutrophils (%) (Auto) 48.8 % Lymphocytes (%) (Auto) 31.3 % Monocytes (%) (Auto) 12.9 % Eosinophils (%) (Auto) 5.7 % Basophils (%) (Auto) 1.1 % Neutrophils # (Auto) 3.23 K/uL Lymphocytes # (Auto) 2.07 K/uL Monocytes # (Auto) 0.85 K/uL Eosinophils # (Auto) 0.38 K/uL Basophils # (Auto) 0.07 K/uL RDW Standard Deviation 45.4 fL RDW Coefficient of Variation 13.1 % Immature Granulocyte % (Auto) 0.2 % Immature Granulocyte # (Auto) 0.01 K/uL Prothrombin Time 10.7 SECONDS Prothromb Time International Ratio 1.0 Activated Partial Thromboplast Time 25.2 SECONDS Partial Thromboplastin Ratio 1.0 D-Dimer 330 ug/L FEU Sodium Level 140 mmol/L Potassium Level 3.4 mmol/L Chloride Level 108 mmol/L Carbon Dioxide Level 26 mmol/L Anion Gap 6.0 mmol/L Blood Urea Nitrogen 16 mg/dl Creatinine 1.12 mg/dl Est Creatinine Clear Calc Drug Dose 79.2 ml/min Estimated GFR () 82.3 Estimated GFR (Non- 71.0 BUN/Creatinine Ratio 14.7 Random Glucose 157 mg/dl Estimated Average Glucose 123 mg/dl Hemoglobin A1c 5.9 % Calcium Level 8.6 mg/dl Magnesium Level 2.0 mg/dl Total Bilirubin 0.6 mg/dl Aspartate Amino Transf (AST/SGOT) 24 U/L Alanine Aminotransferase (ALT/SGPT) 36 U/L Alkaline Phosphatase 79 U/L Troponin I < 0.015 ng/ml < 0.015 ng/ml < 0.015 ng/ml Pro-B-Type Natriuretic Peptide < 5 pg/ml Total Protein 7.3 gm/dl Albumin 3.9 gm/dl Globulin 3.4 gm/dl Albumin/Globulin Ratio 1.1 Lipase 102 U/L Thyroid Stimulating Hormone (TSH) 1.920 uIu/ml Bedside Troponin I < 0.030 ng/ml Erythrocyte Sedimentation Rate 2 mm/hr Triglycerides Level 77 mg/dl Cholesterol Level 163 mg/dl HDL Cholesterol 40 mg/dl LDL Cholesterol, Calculated 108 mg/dl VLDL Cholesterol, Calculated 15 mg/dl Cholesterol/HDL Ratio 4.1 Lyme Disease IgG Antibody NEG Lyme Disease IgM Antibody NEG Hepatitis C Antibody Screen NEG Assessment & Plan CHEST PAIN Serial troponins negative. No acute EKG changes. No wall motion abnormalities on rest echo. No stress-induced ischemia on dobutamine stress echo. D-dimer normal, so pulmonary embolism very unlikely. CP seems to be musculoskeletal in nature. No apparent chest wall abnormalities on chest x-ray. Avoid heavy lifting. Acetaminophen PRN. May need further imaging if pain persists. DYSLIPIDEMIA LDL-c = 108. Continue pravastatin. HYPERGLYCEMIA Random blood sugar 157. Hgb A1C 5.9. Follow. TOBACCO USE Received info on smoking cessation. DEPRESSION Experiencing considerable stress. Continue antidepressants. VTE PROPHYLAXIS SQ enoxaparin. DISPOSITION Discharge to home. Family Medicine follow-up with Dr. Rao. . Consultants: Cardiology . Procedures: cardiac monitoring dobutamine stress echo . Current Inpatient Medications: Current Inpatient Medications Medications (Trade) Dose Ordered Sig/Lis Route Start Time Stop Time Status Last Admin Dose Admin Miscellaneous (Iv Fluids Completed) 1 ea PRN PRN N/A 02/28/18 06:30 02/28/19 06:29 Lactated Ringer's 1,000 ml @ 50 mls/hr Q20H IV 02/28/18 06:45 03/30/18 06:44 02/28/18 08:05 50 MLS/HR Enoxaparin Sodium (Lovenox Inj) 40 mg QAM SC 02/28/18 09:00 03/30/18 08:59 02/28/18 08:06 40 MG Acetaminophen (Tylenol Tab) 650 mg Q4H PRN PO 02/28/18 06:45 03/30/18 06:44 Nitroglycerin (Nitrostat Tab) 0.4 mg UD PRN SL 02/28/18 06:45 03/30/18 06:44 Tramadol HCl (Ultram Tab) 25 mg Q6H PRN PO 02/28/18 06:45 03/30/18 06:44 Prochlorperazine Edisylate 5 mg/ Syringe 5 ml @ 5 mls/min Q6H PRN IV 02/28/18 06:45 03/30/18 06:44 Lorazepam (Ativan Inj) 0.5 mg Q4H PRN IV 02/28/18 06:45 03/30/18 06:44 Morphine Sulfate (MoRPHine SULFATE INJ) 4 mg Q4H PRN IV 02/28/18 06:45 03/14/18 06:44 Bupropion HCl (Wellbutrin-Xl Tab) 300 mg DAILY PO 02/28/18 09:00 03/30/18 08:59 02/28/18 08:03 300 MG Cyanocobalamin (Vitamin B-12 Tab) 100 mcg DAILY PO 02/28/18 09:00 03/30/18 08:59 02/28/18 08:03 100 MCG Salmeterol Xinafoate/ Fluticasone (Advair Diskus 500/50 Inh) 1 puff BID INH 02/28/18 09:00 03/30/18 08:59 02/28/18 08:03 1 PUFF Fluticasone Propionate (Flonase Nasal [place]) 2 sprays DAILY JEANETTE 02/28/18 09:00 03/30/18 08:59 02/28/18 08:02 2 SPRAYS Multivitamins (Multivitamin Tab) 1 tab DAILY PO 02/28/18 09:00 03/30/18 08:59 02/28/18 08:04 1 TAB Pravastatin Sodium (Pravachol Tab) 20 mg HS PO 02/28/18 21:00 03/30/18 20:59 Quetiapine Fumarate (seroQUEL TAB) 50 mg TID PO 02/28/18 09:00 03/30/18 08:59 02/28/18 14:02 50 MG Thiamine HCl (Vitamin B-1 Tab) 100 mg DAILY PO 02/28/18 09:00 03/30/18 08:59 02/28/18 08:03 100 MG Buspirone HCl (Buspar Tab) 10 mg BID PO 02/28/18 09:00 03/30/18 08:59 02/28/18 08:04 10 MG Pantoprazole Sodium (Protonix Tab) 40 mg BID PO 02/28/18 09:00 03/30/18 08:59 02/28/18 08:04 40 MG Aspirin (Ecotrin Tab) 81 mg DAILY PO 03/01/18 09:00 03/30/18 20:59
[2018-02-28] MEDS ORDERED: ACET-1257 PO (14:42)
--- NOTE | 2018-02-28 14:46 | Discharge Instructions ---
Discharge Instructions Date of Service Feb 28, 2018. Admission Reason for Admission: chest pain . Discharge Discharge Diagnosis / Problem: chest pain- no sign of heart attack Discharge Goals Goal(s): Decrease discomfort Activity Recommendations Activity Limitations: as noted below Lifting Limitations: no more than 25 pounds (until better) . Instructions / Follow-Up Instructions / Follow-Up APPOINTMENTS: FAMILY MEDICINE 03/09/2018 1:00 PM Eagle Redd DO (covering for Dr. Rao) Family Practice [facility] OTHER INSTRUCTIONS: There was no sign of a heart attack. Seems like chest pain probably due to pulled muscle in your chest. No heavy lifting until better. May take Extra Strength Tylenol - 2 pills every 8 hours as needed. May use heating pad as needed. Seek medical attention if you have: * temperature above 101 * chest pain or trouble breathing * abdominal pain, nausea, vomiting * diarrhea, dark stools or bloody stools * any unanswered questions or concerns Call 911 if symptoms are severe. Call if you have any questions or problems. You can reach a [facility] hospitalist on duty at [facility] 24 hours a day by calling [phone]. Please take good care of yourself. Warren Abraham . Current Hospital Diet Patient's current hospital diet: AHA Diet (Heart Healthy) Discharge Diet Recommended Diet: AHA Diet (Heart Healthy) Pending Studies Studies pending at discharge: no Laboratory Results Hemoglobin A1c Test 02/28/18 01:44 Range/Units Estimated Average Glucose 123 mg/dl Hemoglobin A1c 5.9 H 4.5-5.6 % Lipid Panel Test 02/28/18 09:10 Range/Units Triglycerides Level 77 0-150 mg/dl Cholesterol Level 163 0-200 mg/dl HDL Cholesterol 40 mg/dl Cholesterol/HDL Ratio 4.1 LDL Cholesterol, Calculated 108 mg/dl Medical Emergencies . Who to Call and When: Medical Emergencies: If at any time you feel your situation is an emergency, please call 911 immediately. . Non-Emergent Contact Non-Emergency issues call your: Primary Care Provider, Hospital Doctor . . "Provider Documentation" section prepared by Warren Abraham. .
[2018-02-28 14:59] VITALS: BP 94/56; PULSE 68; TEMP 36.6; O2SAT 95
--- NOTE | 2018-02-28 18:45 | Discharge Summary ---
Discharge Summary Date of Service Feb 28, 2018. Discharge Summary Admission Date: Feb 28, 2018 at 06:21 Discharge Date: Feb 28, 2018 Discharge Disposition: Home Principal Diagnosis: chest pain, noncardiac . Secondary Diagnoses/Problems: Chronic Medical Problems: (1) Asthma Status: Chronic (2) CVA (cerebral infarction) Status: Chronic (3) Diabetes Status: Chronic (4) GERD (gastroesophageal reflux disease) Status: Chronic . Procedures: cardiac monitoring dobutamine stress echo . Consultations: Cardiology . Medication Reconciliation New Medications: Acetaminophen (Tylenol Extra Strength) 500 Mg Tab 1000 MG PO Q8 PRN for Pain, #60 TAB no prescription necessary Continued Medications: Ascorbic Acid (Vitamin C) 1,000 Mg Tab 1000 MG PO TID Aspirin (Aspirin Ec) 81 Mg Tab 81 MG PO HS Bupropion Hcl (Wellbutrin Xl) 300 Mg Tab 300 MG PO DAILY, TAB Buspirone HCl (Buspirone HCl) 10 Mg Tab 10 MG PO BID Caffeine (Caffeine) 200 Mg Tab 1 CAP PO QDL Calcium Carbonate (Calcium 600) 600 Mg Tab 600 MG PO QPM Cholecalciferol (Vitamin D3) 2,000 Unit Cap 2000 INTER.UNIT PO DAILY Cyanocobalamin (Vitamin B-12) 100 Mcg Tab 100 MCG PO DAILY, TAB Fluticasone Prop/Salmeterol (Advair Diskus 500/50 60 Dose) 1 Ea Aerp 1 PUFF INH BID, INHALER Fluticasone Propionate (Fluticasone Propionate) 120 Sprays/6000 Mcg Inha 2 SPRAYS JEANETTE DAILY Garlic (Garlic) 1,000 Mg Cap 1000 MG PO TID Ginkgo Biloba (Ginkgo) 60 Mg Tab 1 TAB PO BID Ipratropium-Albuterol (Combivent Respimat) 1 Aer Aer 1 PUFF INH QID PRN for Asthma Symptoms Magnesium (Magnesium) 250 Mg Tab 250 MG PO DAILY Multivitamin (Multivitamin) Tab 1 TAB PO DAILY, TAB Nutritional Supplements ([place] Oil) 1 Cap Cap 1200 MG PO TID Omeprazole (Prilosec) 20 Mg Cap 20 MG PO BID Potassium Citrate (Alkalinizer (Urocit-K 5) 540 Mg Tab 1 TAB PO DAILY Pravastatin Sod (Pravastatin Sodium) 20 Mg Tab 20 MG PO HS Quetiapine Fumarate (Seroquel) 50 Mg Tab 50 MG PO TID total dose = 75 mg 3 times a day Quetiapine Fumarate (Seroquel) 25 Mg Tab 25 MG PO TID total dose = 75 mg 3 times a day Thiamine Hcl (Vitamin B-1) 100 Mg Tab 100 MG PO DAILY, TAB Turmeric (Curcuma Longa) (Turmeric) 500 Mg Cap 1 CAP PO TID Vitamin E (E-400) 400 Unit Cap 400 UNIT PO DAILY Admission Information HPI (per Admitting provider): History obtained from patient and records. Medical history is significant for hyperlipidemia, chronic neck pain, chronic anemia (baseline hemoglobin 13), asthma, mood/anxiety disorder, sleep apnea, past alcohol abuse, ongoing tobacco abuse. chronic headache as per records. Recent confinement under Orthopedics service last September 2015 for neck surgery. 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 No trauma. No unusual cough symptoms. Different from reflux. No previous episodes. No recent tick bites although insect bite noted on the left ankle about a week ago. Some relief with Nitro paste given in the ER. . Physical Exam (per Admitting): VITAL SIGNS: Blood pressure was noted to be 160/80 later 110/70, pulse rate 80 , RR 20, temperature 37, sats 97 on room air. GENERAL: Noted to be anxious, no respiratory distress. SKIN: Pallor, warm. HEENT: Alopecia. Bespectacled. Pale palpebral conjunctivae. No ptosis. Dry mucosa. NECK: Chronic neck ROM limitation, nontender. CHEST: Decreased effort. No wheeze. Tenderness on the left chest wall. HEART: Regular rate and rhythm, no murmur. ABDOMEN: Soft, nontender. EXTREMITIES: papule L medial ankle, no edema, nontender. No other deformities. NEUROLOGIC: Coherent. No gross focality. . Hospital Course CHEST PAIN Serial troponins negative. No acute EKG changes. No wall motion abnormalities on rest echo. No stress-induced ischemia on dobutamine stress echo. [place] that pericarditis unlikely. D-dimer normal, so pulmonary embolism very unlikely. CP seemed to be musculoskeletal in nature. No apparent chest wall abnormalities on chest x-ray. May need further imaging if pain persists. Avoid heavy lifting. Acetaminophen PRN. DYSLIPIDEMIA LDL-c = 108. Continue pravastatin. HYPERGLYCEMIA Random blood sugar 157. Hgb A1C 5.9. Follow. TOBACCO USE Received info on smoking cessation. DEPRESSION Experiencing considerable stress. Continue antidepressants. VTE PROPHYLAXIS SQ enoxaparin. DISPOSITION Discharge to home. Family Medicine follow-up with Dr. Rao. . Discharge Instructions Discharge Instructions Date of Service Feb 28, 2018. Admission Reason for Admission: chest pain . Discharge Discharge Diagnosis / Problem: chest pain- no sign of heart attack Discharge Goals Goal(s): Decrease discomfort Activity Recommendations Activity Limitations: as noted below Lifting Limitations: no more than 25 pounds (until better) . Instructions / Follow-Up Instructions / Follow-Up APPOINTMENTS: FAMILY MEDICINE 03/09/2018 1:00 PM Eagle Redd DO (covering for Dr. Rao) Family Practice [facility] OTHER INSTRUCTIONS: There was no sign of a heart attack. Seems like chest pain probably due to pulled muscle in your chest. No heavy lifting until better. May take Extra Strength Tylenol - 2 pills every 8 hours as needed. May use heating pad as needed. Seek medical attention if you have: * temperature above 101 * chest pain or trouble breathing * abdominal pain, nausea, vomiting * diarrhea, dark stools or bloody stools * any unanswered questions or concerns Call 911 if symptoms are severe. Call if you have any questions or problems. You can reach a [facility] hospitalist on duty at [facility] 24 hours a day by calling [phone]. Please take good care of yourself. Warren Abraham . Current Hospital Diet Patient's current hospital diet: AHA Diet (Heart Healthy) Discharge Diet Recommended Diet: AHA Diet (Heart Healthy) Pending Studies Studies pending at discharge: no Laboratory Results Hemoglobin A1c Test 02/28/18 01:44 Range/Units Estimated Average Glucose 123 mg/dl Hemoglobin A1c 5.9 H 4.5-5.6 % Lipid Panel Test 02/28/18 09:10 Range/Units Triglycerides Level 77 0-150 mg/dl Cholesterol Level 163 0-200 mg/dl HDL Cholesterol 40 mg/dl Cholesterol/HDL Ratio 4.1 LDL Cholesterol, Calculated 108 mg/dl Medical Emergencies . Who to Call and When: Medical Emergencies: If at any time you feel your situation is an emergency, please call 911 immediately. . Non-Emergent Contact Non-Emergency issues call your: Primary Care Provider, Hospital Doctor . . "Provider Documentation" section prepared by Warren Abraham. . .
[2018-02-28] MEDS ORDERED: ASPIRIN 81 MG ECTAB PO SCH (21:00)
[2018-02-28] MEDS ORDERED: PRAVASTATIN SOD 20 MG TAB PO SCH (21:00)
[2018-03-01] MEDS ORDERED: ASPIRIN 81 MG ECTAB PO SCH (09:00)
== END 2018-02-28 16:20 | disposition home or self-care (01) ==
LOC: C.EDB 01:35 → C.2T 06:21 → ENRESERV 06:45
PROVIDERS: ADMIT Internal Medicine; ATTEND Hospitalist
DX: R07.89 Other chest pain (principal); J45.909 Unspecified asthma, uncomplicated; Z86.73 Personal history of transient ischemic attack (TIA), and cerebral infarction without residual deficits; E11.9 Type 2 diabetes mellitus without complications; K21.9 Gastro-esophageal reflux disease without esophagitis; Z79.82 Long term (current) use of aspirin; Z79.899 Other long term (current) drug therapy; E78.5 Hyperlipidemia, unspecified; F43.10 Post-traumatic stress disorder, unspecified; F41.9 Anxiety disorder, unspecified; F32.9 Major depressive disorder, single episode, unspecified; Z88.5 Allergy status to narcotic agent